=== PATIENT | male | born 1995 | race Caucasian/White ===

== ENCOUNTER → 2018-02-14 | Outpatient (REF) | payer BC | LOC: M LAB REF 09:46 | DX: J02.9 Acute pharyngitis, unspecified (principal) | CPT/HCPCS: 87081 ==

== ENCOUNTER → 2019-11-16 | Outpatient (CLI) | payer BC, OTHER ==
--- NOTE | 2019-11-16 14:12 | REP ---
REASON: Pain after trauma. FINDINGS: The joint spaces are symmetric and relatively well maintained. There is no evidence of acute fracture or destructive osseous lesion. IMPRESSION: Negative. Electronically Signed by Luis Alberto Gibson DO 11/16/2019 02:38 P
== END ==
LOC: M ADAMS 13:11
PROVIDERS: ATTEND Nurse Practitioner Adult Health
DX: S69.91XA Unspecified injury of right wrist, hand and finger(s), initial encounter (principal); X58.XXXA Exposure to other specified factors, initial encounter; Y92.9 Unspecified place or not applicable; Y93.9 Activity, unspecified

== ENCOUNTER 2021-06-19 13:07 | Emergency (ER) | payer OTHER, SELFPAY ==
[~2021-06-19] VITALS: Ht 180.3 cm; Wt 96.8 kg
[2021-06-19] MEDS ORDERED: ONDANSETRON 4MG/2ML VIAL IV ONE (14:25)
[2021-06-19] MEDS ORDERED: NS 1,000 ML IV ONE (14:25)
[2021-06-19 15:12] LABS: BASO % 0.4 % (0.0-1.0); EOS # 0.1 10^3/uL (0.0-0.5); EOS % 1.3 % (0.0-3.0); HEMATOCRIT 47.8 % (42.0-52.0); HEMOGLOBIN 15.9 g/dl (13.5-17.5); LYMPH # 1.4 10^3/uL (1.5-5.0); LYMPH % 19.5 % (24.0-44.0); MEAN CORPUSCULAR HEMOGLOBIN 29.2 pg (27.0-33.0); MEAN CORPUSCULAR HGB CONC 33.3 g/dl (32.0-36.5); MEAN CORPUSCULAR VOLUME 87.7 fl (80.0-96.0); MONO # 0.4 10^3/uL (0.0-0.8); MONO % 5.8 % (2.0-8.0); NEUTROPHILS % 72.7 % (36.0-66.0); PLATELET COUNT, AUTOMATED 195 10^3/uL (150-450); RED BLOOD COUNT 5.45 10^6/uL (4.30-6.10); WHITE BLOOD COUNT 6.9 10^3/uL (4.0-10.0)
[2021-06-19 15:47] LABS: ALBUMIN 4.8 GM/DL (3.2-5.2); ALT/SGPT 36 U/L (12-78); BILIRUBIN,DIRECT 0.2 MG/DL (0.0-0.2); BILIRUBIN,TOTAL 0.6 MG/DL (0.2-1.0); BLOOD UREA NITROGEN 20 MG/DL (7-18); CALCIUM LEVEL 9.9 MG/DL (8.5-10.1); CARBON DIOXIDE LEVEL 28 MEQ/L (21-32); CHLORIDE LEVEL 104 MEQ/L (98-107); CREATININE FOR GFR 1.36 MG/DL (0.70-1.30); GLOMERULAR FILTRATION RATE > 60.0 (>60); GLUCOSE, FASTING 75 MG/DL (70-100); LIPASE 63 U/L (73-393); POTASSIUM SERUM 4.6 MEQ/L (3.5-5.1); SODIUM LEVEL 139 MEQ/L (136-145); TOTAL PROTEIN 7.8 GM/DL (6.4-8.2)
[2021-06-19 16:11] VITALS: BP 131/59
== END 2021-06-19 16:24 | disposition home or self-care (01) ==
LOC: M ED 13:07
DX: N17.9 Acute kidney failure, unspecified (principal)
CPT/HCPCS: 80048; 80076; 81001; 83690; 85025; 96361; 96374; 99284; J2405

== ENCOUNTER → 2021-06-22 | Outpatient (CLI) | payer OTHER ==
[2021-06-22 12:26] LABS: BLOOD UREA NITROGEN 14 MG/DL (7-18); CALCIUM LEVEL 9.2 MG/DL (8.5-10.1); CARBON DIOXIDE LEVEL 29 MEQ/L (21-32); CHLORIDE LEVEL 105 MEQ/L (98-107); CREATININE FOR GFR 1.38 MG/DL (0.70-1.30); GLOMERULAR FILTRATION RATE > 60.0 (>60); GLUCOSE, FASTING 79 MG/DL (70-100); POTASSIUM SERUM 4.2 MEQ/L (3.5-5.1); SODIUM LEVEL 138 MEQ/L (136-145)
== END ==
LOC: M LAB 10:29
PROVIDERS: ATTEND Physician Assistant Medical
DX: S37.001A Unspecified injury of right kidney, initial encounter (principal); Y92.9 Unspecified place or not applicable; Y93.9 Activity, unspecified; Y99.9 Unspecified external cause status